=== PATIENT | male | born 1935 | race Caucasian/White ===

== ENCOUNTER → 2016-10-20 | Outpatient (CLI) | payer MEDICARE ==
[~2016-10-20] VITALS: Ht 170.2 cm; Wt 63.0 kg
[~2016-10-20] MED LIST: ACET500T68 PO; ATOR40TA59 PO; DILT120C97 PO; RAMI10CA PO; REGADENOSON 0.4 MG/5 ML DISP.SYRIN. IV ONE
--- NOTE | 2016-10-21 10:25 | RAD ---
APPROVED REPORT Test Type: Pharmacological Stress Nurse/Tech: CASH Viramontes Test Indications: Sridhar pain - Hx of CAD Cardiac History: Pacemaker, CAD with Stent in 2006 Medications: see EHR Medical History: see EHR Resting ECG: SR 1degree AVB - Early Transition NST abn Resting Heart Rate: 61 bpm Resting Blood Pressure: 148/78mmHg Pretest Chest Pain: None Nurse/Tech Notes Consent: The procedure was explained to the patient in lay terms. Informed consent was witnessed. Stanford eout was entered into [employer]. History and Stress Test performed by CASH Viramontes Pharm. Details Pharmacologic stress testing was performed using 0.4mg per 5ml of regadenoson given intravenously ove r 7-10 seconds. Stress Symptoms No CP No SOB no acute ST IT D's POST EXERCISE Max HR: 84 bpm Max Blood Pressure: 128/65mmHg Blood Pressure response to exercise: Normal blood pressure response during stress. Heart Rate response to exercise: normal response Chest Pain: No. ST Change: No. INTERPRETATION Stress EKG Conclusion: No evidence of stress induced EKG changes. Imaging Protocol IMAGE PROTOCOL: Rest Tc-99m/stress Tc-99m 1 day Rest: Stress: Viability: Radiopharm.Tc99m BderxkmneZk56t Sestamibi Dose12.6mCi 35mCi Duration 15min. 10min. Img Date 10/20/2016 10/20/2016 Inj-Img Uwcm82mjy. 60min. Rest Admin Site:IV - Left ForearmAdministrator: CASH Viramontes Stress Admin Site: IV - Left ForearmAdministrator: CASH Viramontes STRESS DATA End Diast. Vol.74.0mlAv. Heart Rate61.0bpm LVEDV index BSA2.0mlCardiac Output0.1L/min End Syst. Vol.25.0mlCO Index BSA3.0L/min LVESV index BSA1.0mlMyocardial Pfsl438.0g Eject. Mrkslski14.0% Stress Rates Pk. Fill Rate2.48EDV/secLVtime Pk. Fill 254.91msec Pk. Empty Rate3.70ESV/secLVtime Pk. Tuntm528.80msec 07/20 Pk. Fill0.64EDV/sec Stress Scores Regional WT0.00Summed WT0.00 Regional WM0.00Summed WM3.00 The rest and stress images show normal perfusion, normal contraction and thickening. LV Perf. Quant 17 Seg. SSS0.00 17 Seg. SRS0.00 17 Seg. SDS0.00 Stress Defect Extent (% LAD)0.00Rest Defect Extent (% LAD)0.00Rev. Defect Extent (% LAD)0.00 Stress Defect Extent (% LCX) 2.50Rest Defect Extent (% LCX)0.00Rev. Defect Extent (% LCX)2.50 Stress Defect Extent (% RCA)0.00Rest Defect Extent (% RCA)0.00Rev. Defect Extent (% RCA)0.00 Stress Defect Extent (% AINSLEY)0.40Rest Defect Extent (% AINSLEY)0.00Rev. Defect Extent (% AINSLEY)0.40 Other Information Quality:Average Risk Assessment: Low Risk Conclusion 1. No evidence of stress induced EKG changes. 2. Normal myocardial perfusion at stress/rest 3. Low risk study 4. Normal EF at > 60%.
== END | disposition home or self-care (01) ==
LOC: NM 06:51
PROVIDERS: ATTEND Internal Medicine Cardiovascular Disease
DX: I25.10 Atherosclerotic heart disease of native coronary artery without angina pectoris (principal); R07.9 Chest pain, unspecified; F43.9 Reaction to severe stress, unspecified
CPT/HCPCS: 78452; 93017; 96374; 96375; 96376; J2785

== ENCOUNTER → 2017-10-18 | Outpatient (CLI) | payer MEDICARE ==
[~2017-10-18] MED LIST changes: +DILT120C80 PO; -DILT120C97 PO; -REGADENOSON 0.4 MG/5 ML DISP.SYRIN. IV ONE
--- NOTE | 2017-10-18 14:36 | CARD ---
MR#: [id number] Date of Study: 10/18/2017 Ordering Physician: ANUPAM JACOBO, Referring Physician: ANUPAM JACOBO, Tech: DOC Orozco APPROVED REPORT EXAM: Two-dimensional and M-mode echocardiogram with Doppler and color Doppler. Other Information Quality : Average INDICATION CAD 2D DIMENSIONS Left Atrium(2D)3.0 (1.6-4.0cm)IVSd1.1 (0.7-1.1cm) Aortic Root(2D)4.0 (2.0-3.7cm)LVDd4.2 (3.9-5.9cm) LVOT Diameter1.8 (1.8-2.4cm)PWd0.9 (0.7-1.1cm) LVDs2.8 (2.5-4.0cm)FS (%) 29.0 % SV49.5 mlLVEF(%)65.0 (>50%) Aortic Valve AoV Peak Frank.105.1cm/Shruti Peak GR.4.4mmHg LVOT Peak Frank.100.2cm/sAVA (VMAX)2.36cm2 Mitral Valve MV E Ccsuamlx52.2cm/sMV DECEL TTWT695ct MV A Mfmpeghv376.6cm/sE/A Ratio0.9 Tricuspid Valve TR P. Rgaadvhe133lv/sTR Peak Gr.26mmHg LEFT VENTRICLE The left ventricle is normal size. There is borderline to mild concentric left ventricular hypertroph y. The left ventricle systolic function is normal. The Ejection Fraction is 65-70%. There is normal L V segmental wall motion. RIGHT VENTRICLE The right ventricle is normal size. There is normal right ventricular wall thickness. The right ventr icular systolic function is normal. There is a pacemaker lead in the right ventricle. ATRIA The left atrium size is normal. The right atrium size is normal. There is a catheter/pacemaker lead s een in the right atrium. The interatrial septum is intact with no evidence for an atrial septal defec t or patent foramen ovale as noted on 2-D or Doppler imaging. AORTIC VALVE The aortic valve is trileaflet. The aortic valve is mildly to moderately sclerotic. Doppler and Color Flow revealed trace to mild aortic regurgitation. There is no significant aortic valvular stenosis. MITRAL VALVE The mitral valve leaflets are thickened and calcified. Mitral annular calcification is mild. There is no evidence of mitral valve prolapse. There is no mitral valve stenosis. Doppler and Color-flow reve aled mild mitral regurgitation. TRICUSPID VALVE Doppler and Color Flow revealed mild to moderate tricuspid regurgitation. There is no tricuspid valve stenosis. PULMONIC VALVE The pulmonic valve is not well visualized. Doppler and Color Flow revealed mild pulmonic valvular reg urgitation. There is no pulmonic valvular stenosis. GREAT VESSELS The aortic root, sinus is dilated (4.0cm). 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 There are limited subcostal views. Not able to visualize the IVC. PERICARDIAL EFFUSION There is no pleural effusion. There is no evidence of significant pericardial effusion. Critical Notification Critical Value: No <Conclusion> The left ventricle systolic function is normal. The Ejection Fraction is 65-70%. There is normal LV segmental wall motion. There is a pacemaker lead in the right atrium and right ventricle. Trace to mild aortic regurgitation. Mild mitral regurgitation. Mild to moderate tricuspid regurgitation. 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 There is no evidence of significant pericardial effusion. Signed by : Anupam Jacobo, Electronically Approved : 10/18/2017 14:36:11
== END | disposition home or self-care (01) ==
LOC: ECHO 07:51
PROVIDERS: ATTEND Internal Medicine Cardiovascular Disease
DX: I25.10 Atherosclerotic heart disease of native coronary artery without angina pectoris (principal); I08.3 Combined rheumatic disorders of mitral, aortic and tricuspid valves; I10 Essential (primary) hypertension
CPT/HCPCS: 93306

== ENCOUNTER → 2018-11-21 | Outpatient (CLI) | payer MEDICARE ==
[~2018-11-21] MED LIST changes: -DILT120C80 PO; +DILT120C85 PO; -RAMI10CA PO; +RAMI10CA53 PO
--- NOTE | 2018-11-21 09:21 | CARD ---
MR#: [id number] Date of Study: 11/21/2018 Ordering Physician: ANUPAM SALEH, Referring Physician: ANUPAM SALEH Tech: Dionne Spears RDCS APPROVED REPORT EXAM: Two-dimensional and M-mode echocardiogram with Doppler and color Doppler. Other Information Quality : Good INDICATION Sick Sinus Syndrome Surgery/Intervention Pacemaker: Date: 2006 RISK FACTORS Hypertension 2D DIMENSIONS RVDd2.9 (2.9-3.5cm)Left Atrium(2D)2.4 (1.6-4.0cm) IVSd1.1 (0.7-1.1cm)Aortic Root(2D)3.6 (2.0-3.7cm) LVDd3.4 (3.9-5.9cm)LVOT Diameter2.1 (1.8-2.4cm) PWd1.0 (0.7-1.1cm)LVDs2.4 (2.5-4.0cm) FS (%) 28.2 %SV26.1 ml LVEF(%)55.7 (>50%) Aortic Valve AoV Peak Frank.128.1cm/sAoV VTI17.4cm AO Peak GR.6.6mmHgLVOT Peak Frank.98.0cm/s LVOT VTI 22.55cmAO Mean GR.4mmHg CHAPITO (VMAX)2.44nw3GJV (VTI)4.40cm2 Mitral Valve MV E Qohqjxfw47.5cm/sMV DECEL SQPB465xj MV A Kxlllesl704.3cm/sE/A Ratio0.9 Tricuspid Valve TR P. Ywuumobp857zc/sRAP FJOGRQPV2cuFe TR Peak Gr.74boBwOTXB51aiDk Pulmonary Vein S1 Apnmcilp26.1cm/sD2 Tylvlcaf75.4cm/s LEFT VENTRICLE The left ventricle is normal size. There is normal left ventricular wall thickness. The left ventricu lar systolic function is normal. The Ejection Fraction is 60-65%. There is normal LV segmental wall m otion. Transmitral Doppler flow pattern is Grade I-abnormal relaxation pattern. RIGHT VENTRICLE The right ventricle is normal size. The right ventricular systolic function is normal. There is a pac emaker lead in the right ventricle. ATRIA The left atrium size is normal. The right atrium size is normal. A pacemaker is seen in the right atr ium consistent with history. The interatrial septum is intact with no evidence for an atrial septal d efect or patent foramen ovale as noted on 2-D or Doppler imaging. AORTIC VALVE The aortic valve is mildly thickened but opens well. Doppler and Color Flow revealed trace to mild ao rtic regurgitation. There is no significant aortic valvular stenosis. MITRAL VALVE The mitral valve is calcified but opens well. Mitral annular calcification is moderate. There is no e vidence of mitral valve prolapse. There is no mitral valve stenosis. Doppler and Color-flow revealed mild mitral regurgitation. TRICUSPID VALVE The tricuspid valve is normal in structure and function. Doppler and Color Flow revealed mild tricusp id regurgitation. There is mild pulmonary hypertension. The PA pressure was estimated at 38 mmHg. The re is no tricuspid valve stenosis. PULMONIC VALVE The pulmonary valve is normal in structure and function. Doppler and Color Flow revealed mild pulmoni c valvular regurgitation. There is no pulmonic valvular stenosis. GREAT VESSELS The aortic root is mildly enlarged. The ascending aorta is mildly dilated at 3.8 cm. The IVC is alvino l in size and collapses >50% with inspiration. PERICARDIAL EFFUSION There is no evidence of significant pericardial effusion. Critical Notification Critical Value: No <Conclusion> The left ventricular systolic function is normal. The Ejection Fraction is 60-65%. There is normal LV segmental wall motion. Transmitral Doppler flow pattern is Grade I-abnormal relaxation pattern. There is a pacemaker lead in the right atrium and ventricle. Trace to mild aortic regurgitation. Mild mitral regurgitation. Mild tricuspid regurgitation. The PA pressure was estimated at 38 mmHg. There is no evidence of significant pericardial effusion. Signed by : Anupam Saleh, Electronically Approved : 11/21/2018 09:21:16
== END | disposition home or self-care (01) ==
LOC: ECHO 07:39
PROVIDERS: ATTEND Internal Medicine Cardiovascular Disease
DX: I08.8 Other rheumatic multiple valve diseases (principal); I77.89 Other specified disorders of arteries and arterioles; I49.5 Sick sinus syndrome; I10 Essential (primary) hypertension; Z95.0 Presence of cardiac pacemaker
CPT/HCPCS: 93306

== ENCOUNTER → 2019-05-17 | Outpatient (CLI) | payer MEDICARE ==
[~2019-05-17] MED LIST changes: -DILT120C85 PO; +DILT120C99 PO; +REGADENOSON 0.4 MG/5 ML DISP.SYRIN. IV ONE
--- NOTE | 2019-05-17 14:14 | RAD ---
MR#: [id number] Date of Study: 05/17/2019 Ordering Physician: ANUPAM SALEH, Referring Physician: BAHMAN ARNDT Tech: FANG Davidson ARRT (R) (N) APPROVED REPORT Test Type: Pharmacological Stress Nurse/Tech: JORGE Mora Test Indications: CAD Cardiac History: See Electronic Medical Record Medications: See Electronic Medical Record Medical History: See Electronic Medical Record Resting ECG: SR, PACEMAKER SPIKES NOTED. Resting Heart Rate: 60 bpm Resting Blood Pressure: 166/83mmHg Pretest Chest Pain: None Nurse/Tech Notes INITIAL EKG, SR. SUSEQUENT EKG 100% PACED Consent: The procedure was explained to the patient in lay terms. Informed consent was witnessed. Stanford eout was entered into [employer]. History and Stress Test performed by FANG Davidson ARRT (R) (N) Pharm. Details Pharmacologic stress testing was performed using 0.4mg per 5ml of regadenoson given intravenously ove r 7-10 seconds. Stress Symptoms No chest pain or symptoms. POST EXERCISE Reason for Termination: Infusion complete Target HR: No Max HR: 104 bpm 91% of Maximum Predicted HR: 114 bpm Exercise duration: 6 min:sec, Stage Max Blood Pressure: 177-66mmHg Blood Pressure response to exercise: Normal blood pressure response during stress. Chest Pain: No. Arrhythmia: No. ST Change: No. INTERPRETATION Stress EKG Conclusion: Baseline EKG showed sinus rhythm. Paced rhythm during stress. Imaging Protocol IMAGE PROTOCOL: Rest Tc-99m/stress Tc-99m 1 day Rest: Stress: Viability: Radiopharm.Tc99m KlllggdvlWu99n Sestamibi Afpi55tYo 33mCi Img Date 05/17/2019 05/17/2019 Inj-Img Fxpe51zuz. 60min. Rest Admin Site:IV - Left HandAdministrator: FANG Davidson ARRT (R)(N) Stress Admin Site: IV - Left HandAdministrator: FANG Davidson ARRT (Eduardo)(N) STRESS DATA End Diast. Vol.80.0mlAv. Heart Rate61.0bpm End Syst. Vol.23.0mlCO Index BSA0.0L/min Myocardial Rmwo022.0gEject. Quxnwzpk68.0% Stress Rates Pk. Fill Rate2.77EDV/secLVtime Pk. Fill 251.66msec Pk. Empty Rate3.50ESV/secLVtime Pk. Uirmt554.42msec 1/3 Pk. Fill1.13EDV/sec Stress Scores Regional WT0.00Summed WT6.00 Regional WM0.00Summed WM0.00 LV Perfusion Scintigraphic images did not show any significant fixed or reversible defects. Wall Motion Normal left ventricle systolic function with ejection fraction calculated at 75%. LV Perf. Quant 17 Seg. SSS0.00 17 Seg. SRS2.00 17 Seg. SDS0.00 Stress Defect Extent (% LAD)0.00Rest Defect Extent (% LAD)0.00Rev. Defect Extent (% LAD)0.00 Stress Defect Extent (% LCX) 0.00Rest Defect Extent (% LCX)33.80Rev. Defect Extent (% LCX)0.00 Stress Defect Extent (% RCA)0.00Rest Defect Extent (% RCA)0.00Rev. Defect Extent (% RCA)0.00 Stress Defect Extent (% AINSLEY)0.00Rest Defect Extent (% AINSLEY)5.90Rev. Defect Extent (% AINSLEY)0.00 Conclusion 1. Regadenoson cardioisotope stress test did not show any evidence of ischemia or infarct. 2. Normal left ventricular systolic function with ejection fraction calculated at 75%. 3. Low risk for cardiac events. Signed by : Anupam Saleh, Electronically Approved : 05/17/2019 14:14:18
== END | disposition home or self-care (01) ==
LOC: NM 08:04
PROVIDERS: ATTEND Internal Medicine Cardiovascular Disease
DX: I25.10 Atherosclerotic heart disease of native coronary artery without angina pectoris (principal)
CPT/HCPCS: 78452; 93017; A9500; J2785

== ENCOUNTER → 2019-12-25 | Outpatient (CLI) | payer MEDICARE ==
[~2019-12-25] MED LIST changes: -REGADENOSON 0.4 MG/5 ML DISP.SYRIN. IV ONE
--- NOTE | 2019-12-25 10:32 | CARD ---
MR#: [id number] Date of Study: 12/25/2019 Ordering Physician: ANUPAM SALEH, Referring Physician: ANUPAM SALEH, Tech: Dionne Spears RDCS APPROVED REPORT EXAM: Two-dimensional and M-mode echocardiogram with Doppler and color Doppler. Other Information Quality : Good Rhythm : Pacemaker INDICATION Sick Sinus Syndrome Surgery/Intervention Pacemaker: Date: 11/2006 2D DIMENSIONS RVDd2.4 (2.9-3.5cm)Left Atrium(2D)2.4 (1.6-4.0cm) IVSd1.0 (0.7-1.1cm)Aortic Root(2D)3.5 (2.0-3.7cm) LVDd4.3 (3.9-5.9cm)LVOT Diameter2.0 (1.8-2.4cm) PWd1.0 (0.7-1.1cm)LVDs2.4 (2.5-4.0cm) FS (%) 44.8 %SV64.8 ml LVEF(%)60.0 (>50%) Aortic Valve AoV Peak Frank.108.4cm/sAoV VTI22.4cm AO Peak GR.4.7mmHgAO Mean GR.3mmHg AI P 1/2 Wyfp0186vc Mitral Valve MV E Yqcfugkw22.3cm/sMV DECEL GNLR810bl MV A Yaewysgo94.2cm/sE/A Ratio0.9 Tricuspid Valve TR P. Ptqykjvh651ib/sRAP OFRLBSYD1qqSb TR Peak Gr.82nxXxPSNQ86xjKd LEFT VENTRICLE The left ventricle is normal size. There is mild to moderate concentric left ventricular hypertrophy. The left ventricular systolic function is normal and the ejection fraction is within normal range. T he Ejection Fraction is 55-60%. There is normal LV segmental wall motion. Transmitral Doppler flow pa ttern is Grade I-abnormal relaxation pattern. RIGHT VENTRICLE The right ventricle is normal size. The right ventricular systolic function is normal. There is a pac emaker lead in the right ventricle. ATRIA The left atrium size is normal. The right atrium size is normal. A pacemaker is seen in the right atr ium consistent with history. The interatrial septum is intact with no evidence for an atrial septal d efect or patent foramen ovale as noted on 2-D or Doppler imaging. AORTIC VALVE The aortic valve is calcified but opens well. Doppler and Color Flow revealed mild aortic regurgitati on. There is no significant aortic valvular stenosis. MITRAL VALVE The mitral valve is calcified but opens well. Mitral annular calcification is mild. There is no evide nce of mitral valve prolapse. There is no mitral valve stenosis. Doppler and Color-flow revealed trac e mitral regurgitation. TRICUSPID VALVE The tricuspid valve is normal in structure and function. Doppler and Color Flow revealed mild tricusp id regurgitation The PA pressure was estimated at 39 mmHg. There is no tricuspid valve stenosis. PULMONIC VALVE The pulmonary valve is normal in structure and function. Doppler and Color Flow revealed mild pulmoni c valvular regurgitation. There is no pulmonic valvular stenosis. GREAT VESSELS The aortic root is normal in size. The ascending aorta is moderately dilated at 4.1 cm. The IVC is no rmal in size and collapses >50% with inspiration. PERICARDIAL EFFUSION There is no evidence of significant pericardial effusion. Critical Notification Critical Value: No <Conclusion> The left ventricle is normal size. The left ventricular systolic function is normal and the ejection fraction is within normal range. The Ejection Fraction is 55-60%. There is mild to moderate concentric left ventricular hypertrophy. Doppler and Color Flow revealed mild aortic regurgitation. There is no significant aortic valvular stenosis. Doppler and Color-flow revealed trace mitral regurgitation. Doppler and Color Flow revealed mild tricuspid regurgitation The PA pressure was estimated at 39 mmHg. The ascending aorta is moderately dilated at 4.1 cm. Signed by : Michael Khan MD Electronically Approved : 12/25/2019 10:31:41
== END | disposition home or self-care (01) ==
LOC: ECHO 09:45
PROVIDERS: ATTEND Internal Medicine Cardiovascular Disease
DX: I08.8 Other rheumatic multiple valve diseases (principal); I49.5 Sick sinus syndrome
CPT/HCPCS: 93306

== ENCOUNTER → 2020-12-30 | Outpatient (CLI) | payer MEDICARE ==
--- NOTE | 2020-12-31 09:41 | CARD ---
MR#: [id number] Date of Study: 12/30/2020 Ordering Physician: MARCO RAMOS, Referring Physician: MARCO RAMOS, Tech: Lucina Garcia, [facility] APPROVED REPORT EXAM: Two-dimensional and M-mode echocardiogram with Doppler and color Doppler. Other Information Quality : AverageHR: 69bpm Rhythm : PacemakerNSRAtrial FibrillationAtrial Flutter INDICATION Arrhythmia Surgery/Intervention Pacemaker: Date: 2006 RISK FACTORS Hypertension Hyperlipidemia 2D DIMENSIONS Left Atrium(2D)2.6 (1.6-4.0cm)IVSd1.4 (0.7-1.1cm) Aortic Root(2D)3.8 (2.0-3.7cm)LVDd3.9 (3.9-5.9cm) LVOT Diameter1.9 (1.8-2.4cm)PWd1.1 (0.7-1.1cm) LVDs2.7 (2.5-4.0cm)FS (%) 29.9 % SV37.9 mlLVEF(%)57.7 (>50%) Aortic Valve AoV Peak Frank.124.7cm/sAoV VTI21.3cm AO Peak GR.6.2mmHgLVOT Peak Frank.74.8cm/s LVOT VTI 15.48cmAO Mean GR.3mmHg CHAPITO (VMAX)1.48xh2ZOA (VTI)2.11cm2 AI P 1/2 Zflf207ys Mitral Valve MV E Jpyffzou649.6cm/sMV DECEL NHNJ183ec MV A Qjsguktx83.8cm/sE/A Ratio2.8 Pulmonary Valve PV Peak Piitkbax15.9cm/sPV Peak Grad.2mmHg Tricuspid Valve TR P. Gdxsmklj383tg/sRAP GIZRKIIQ2noPa TR Peak Gr.18ypAcKPDM61ltTy LEFT VENTRICLE The left ventricle is normal size. There is mild to moderate concentric left ventricular hypertrophy. The left ventricular systolic function is normal and the ejection fraction is within normal range. T he Ejection Fraction is 50-55%. There is normal LV segmental wall motion. Tissue Doppler imaging reve als moderate left ventricular diastolic dysfunction. RIGHT VENTRICLE The right ventricle is normal size. There is normal right ventricular wall thickness. The right ventr icular systolic function is normal. There is a device lead in the right ventricle. ATRIA The left atrium size is normal. The right atrium size is normal. The interatrial septum is intact wit h no evidence for an atrial septal defect or patent foramen ovale as noted on 2-D or Doppler imaging. AORTIC VALVE The aortic valve is calcified and displays decreased opening. Doppler and Color Flow revealed trace a ortic regurgitation. There is no significant aortic valvular stenosis. Calculated aortic valve area i s 2.06 cm2 with maximum pressure gradient of 7 mmHg and mean pressure gradient of 4 mmHg. MITRAL VALVE The mitral valve is mildly thickened. There is no evidence of mitral valve prolapse. There is no mitr al valve stenosis. Doppler and Color-flow revealed trace mitral regurgitation. TRICUSPID VALVE The tricuspid valve is normal in structure and function. Doppler and Color Flow revealed mild tricusp id regurgitation with an estimated PAP of 33 mmHg. There is no tricuspid valve stenosis. PULMONIC VALVE The pulmonic valve is not well visualized. Doppler and Color Flow revealed trace to mild pulmonic erum vular regurgitation. GREAT VESSELS The aortic root is mildly enlarged measuring 3.8 cm. The IVC is normal in size and collapses >50% wit h inspiration. PERICARDIAL EFFUSION There is no evidence of significant pericardial effusion. Critical Notification Critical Value: No <Conclusion> The left ventricle is normal size. The left ventricular systolic function is normal and the ejection fraction is within normal range. The Ejection Fraction is 50-55%. There is mild to moderate concentric left ventricular hypertrophy. Doppler and Color Flow revealed trace aortic regurgitation. There is no significant aortic valvular stenosis. Doppler and Color-flow revealed trace mitral regurgitation. Doppler and Color Flow revealed mild tricuspid regurgitation with an estimated PAP of 33 mmHg. The aortic root is mildly enlarged measuring 3.8 cm. Signed by : Michael Khan MD Electronically Approved : 12/31/2020 09:40:51
== END ==
LOC: ECHO 14:41
PROVIDERS: ATTEND Internal Medicine Cardiovascular Disease
DX: I08.8 Other rheumatic multiple valve diseases (principal); I49.5 Sick sinus syndrome
CPT/HCPCS: 93306

== ENCOUNTER → 2020-12-31 | Outpatient (CLI) | payer MEDICARE ==
[~2020-12-31] MED LIST changes: +REGADENOSON 0.4 MG/5 ML DISP.SYRIN. IV ONE
--- NOTE | 2020-12-31 11:35 | RAD ---
MR#: [id number] Date of Study: 12/31/2020 Ordering Physician: ANUPAM SALEH, Referring Physician: BAHMAN ARNDT Tech: RT Jaron (R) (N) APPROVED REPORT Test Type: Pharmacological Stress Nurse/Tech: Kimmy CONTRERAS/Kel PERDUE Test Indications: CHEST PAIN Cardiac History: Hypertension, STENT IN 2006, PACE MAKER Medications: SEE EHR Resting ECG: YES Resting Heart Rate: 70 bpm Resting Blood Pressure: 160/92mmHg Pretest Chest Pain: No chest pain Pharm. Details Pharmacologic stress testing was performed using 0.4mg per 5ml of regadenoson given intravenously ove r 7-10 seconds. Stress Symptoms SLIGHT DYSPNEA POST EXERCISE Reason for Termination: Infusion complete Max HR: 210 bpm Blood Pressure response to exercise: Normal blood pressure response during stress. Heart Rate response to exercise: Increased Chest Pain: No. Arrhythmia: No. ST Change: No. INTERPRETATION Stress EKG Conclusion: The resting EKG shows a V paced rhythm. The stress EKG shows atrial fibrillation with mild nonspecific T wave changes in the inferior leads. No EKG evidence of stress-induced ischemia. Imaging Protocol IMAGE PROTOCOL: Rest Tc-99m/stress Tc-99m 1 day Rest: Stress: Viability: Radiopharm.Tc99m EhwcfmalsWz72r Sestamibi Orjc0zVm 30mCi Duration 15min. 15min. Img Date 12/31/2020 12/31/2020 Inj-Img Bohd16nhn. 60min. Rest Admin Site:IV - Right AntecubitalAdministrator: RT Jaron (R)(N) Stress Admin Site: IV - Right AntecubitalAdministrator: RT Jaron (R)(N) STRESS DATA End Diast. Vol.56.0mlAv. Heart Rate74.0bpm End Syst. Vol.17.0mlCO Index BSA0.0L/min Myocardial Umvw460.0gEject. Yrurijlr81.0% Stress Rates Pk. Fill Rate3.30EDV/secLVtime Pk. Fill 199.93msec Pk. Empty Rate3.74ESV/secLVtime Pk. Qdnys289.84msec 1/3 Pk. Fill1.21EDV/sec Stress Scores Regional WT0.00Summed WT11.00 Regional WM0.00Summed WM8.00 LV Perfusion The stress scans show no significant defects. The rest scans show no significant defects. Nuclear imaging shows no reversible ischemia or infarct. Wall Motion Normal left ventricular systolic function with an ejection fraction of 65%. LV Perf. Quant 17 Seg. SSS0.00 17 Seg. SRS0.00 17 Seg. SDS0.00 Stress Defect Extent (% LAD)0.00Rest Defect Extent (% LAD)0.00Rev. Defect Extent (% LAD)0.00 Stress Defect Extent (% LCX) 10.00Rest Defect Extent (% LCX)0.00Rev. Defect Extent (% LCX)0.00 Stress Defect Extent (% RCA)0.00Rest Defect Extent (% RCA)0.00Rev. Defect Extent (% RCA)0.00 Stress Defect Extent (% AINSLEY)1.70Rest Defect Extent (% AINSLEY)0.00Rev. Defect Extent (% AINSLEY)0.00 Conclusion 1. No EKG evidence of stress-induced ischemia. 2. Nuclear imaging shows no reversible ischemia or infarct. 3. Intact LV systolic function with an ejection fraction of 65%. 4. Low risk Lexiscan nuclear stress test. Signed by : Michael hKan MD Electronically Approved : 12/31/2020 11:35:06
== END ==
LOC: NM 07:49
PROVIDERS: ATTEND Internal Medicine Cardiovascular Disease
DX: I10 Essential (primary) hypertension (principal); Z95.0 Presence of cardiac pacemaker
CPT/HCPCS: 78452; 93017; A9500; J2785